=== PATIENT | female | born 1950 ===

== ENCOUNTER 2018-02-14 09:26 | Emergency (ER) | payer OTHER ==
--- NOTE | 2018-02-14 09:53 | EDPHY ---
H & P Stated Complaint: Right lower leg swelling since Wednesday Time Seen by Provider: 02/14/18 09:44 HPI/ROS: CHIEF COMPLAINT: Right leg pain and swelling HISTORY OF PRESENT ILLNESS: The patient presents to the ED with a 3 day history of atraumatic right leg pain and swelling. The patient does report some prolonged immobilization secondary to travel [facility] the [facility]. The patient is on hormone replacement therapy. The patient does not smoke. There is a possible family history of blood clots in her mother. The patient denies any pleuritic chest pain or shortness of breath. The patient denies any fever, cough or congestion. She denies any history of fall or recent injury. REVIEW OF SYSTEMS: A comprehensive 10 point review of systems is otherwise negative aside from elements mentioned in the history of present illness. Source: Patient Exam Limitations: No limitations - Personal History Current Tetanus Diphtheria and Acellular Pertussis (TDAP): Yes - Medical/Surgical History Hx Asthma: No Hx Chronic Respiratory Disease: No Hx Diabetes: No Hx Cardiac Disease: No Hx Renal Disease: No Hx Cirrhosis: No Hx Alcoholism: No Hx HIV/AIDS: No Hx Splenectomy or Spleen Trauma: No Other PMH: Denies - Social History Smoking Status: Never smoked - Physical Exam Exam: General Appearance: Alert, no distress Eyes: Pupils equal and round no pallor or injection ENT, Mouth: Mucous membranes moist Respiratory: There are no retractions, lungs are clear to auscultation Cardiovascular: Regular rate and rhythm Gastrointestinal: Abdomen is soft and nontender, no masses, bowel sounds normal Neurological: 5/5 strength noted all 4 extremities Skin: Warm and dry, no rashes Musculoskeletal: Neck is supple nontender Extremities: Right calf tenderness,, no cellulitis or abscess appreciated, 2+ dorsalis pedis posterior tibial pulses Constitutional: Initial Vital Signs Temperature (C) 36.4 C 02/14/18 09:30 Heart Rate 68 02/14/18 09:30 Respiratory Rate 16 02/14/18 09:30 Blood Pressure 141/95 H 02/14/18 09:30 O2 Sat (%) 98 02/14/18 09:30 O2 Delivery Mode Room Air Allergies/Adverse Reactions: No Known Allergies Allergy (Unverified 08/26/11 20:24) Home Medications: Medication Instructions Recorded Albuterol [Proventil Inhaler HFA 2 puffs IH Q4-6PRN #1 mdi 08/26/11 (*)] Hot Flash Med 08/26/11 predniSONE [Prednisone] 40 mg PO DAILY #8 tablet 08/26/11 Medical Decision Making ED Course/Re-evaluation: The patient presents to the ED for evaluation of right posterior leg pain in the setting of recent immobilization and hormone replacement therapy. The patient was noted to have calf tenderness on exam. She was noted to be vascularly intact. The patient was taken for an ultrasound of the extremity which demonstrates a Metzger cyst without evidence of DVT. The patient will be given customary aftercare instructions and return precautions. She will follow up with her regular primary care provider as needed. Differential Diagnosis: Differential diagnosis considered includes DVT, Metzger cyst, myofascial strain, arterial thrombosis Departure - Departure Disposition: Home, Routine, Self-Care Clinical Impression: Metzger's cyst, unruptured Qualifiers: Laterality: right Qualified Code(s): M71.21 - Synovial cyst of popliteal space [Metzger], right knee Condition: Good Instructions: Bakers Cyst (ED) Additional Instructions: 1. Take Ibuprofen or Motrin 600 mg by mouth three times a day. 2. You have a Metzger cyst noted behind your right knee which is what is causing the pain and swelling. I do recommend a repeat ultrasound in 2 weeks if you still continue to have any ongoing symptoms. Please return to the ED for markedly worsening symptoms or other concerns. 3. Please follow-up with your primary care provider as needed. Referrals: Enedelia Porter MD [Primary Care Provider] - As per Instructions
[2018-02-14 11:04] VITALS: BP 168/98
== END 2018-02-14 10:51 | disposition home or self-care (01) ==
DX: M79.89 Other specified soft tissue disorders (principal); M71.21 Synovial cyst of popliteal space [Baker], right knee; Z79.890 Hormone replacement therapy